=== PATIENT | female | born 1980 | race Caucasian/White ===

== ENCOUNTER → 2020-06-11 16:11 | Outpatient (CLI) | payer OTHER, SELFPAY ==
--- NOTE | ~2020-06-11 | MM_ITS ---
EXAMINATION: MM screening rick BI w aron HISTORY: Screening mammogram TECHNIQUE: Craniocaudal and mediolateral oblique 3-D tomosynthesis images were obtained and synthetic 2-D images were generated. CAD analysis was submitted and interpreted. COMPARISON: No prior mammogram is available for comparison at this institution. BREAST PARENCHYMAL COMPOSITION: There are scattered areas of fibroglandular density. FINDINGS: Bilateral benign-appearing intramammary lymph nodes. There is no evidence of suspicious mas s, calcification, or architectural distortion to suggest malignancy in either breast. There has been no suspicious interval change. IMPRESSION: 1. No mammographic evidence of malignancy. 2. Recommend routine screening mammography in one year. BI-RADS Category 2: Benign finding(s). Reviewed, dictated and finalized at location A.
== END ==
PROVIDERS: Visit Provider Advanced Practice Midwife
DX: Z12.31 Encounter for screening mammogram for malignant neoplasm of breast (principal)
CPT/HCPCS: 77063; 77067

== ENCOUNTER 2020-09-16 11:28 | Outpatient (CLI) | payer OTHER, SELFPAY ==
[2020-09-19 04:32] LABS: CA-125 9 U/mL (<35)
== END 2020-09-16 11:29 | disposition home or self-care (01) ==
PROVIDERS: PCP Registered Nurse; Visit Provider Obstetrics & Gynecology
DX: N83.202 Unspecified ovarian cyst, left side (principal)
CPT/HCPCS: 36415; 86304

== ENCOUNTER → 2020-10-24 15:53 | Outpatient (CLI) | payer OTHER, SELFPAY ==
--- NOTE | ~2020-10-24 | MR_ITS ---
EXAMINATION: MR knee RT wo con DATE: 10/24/2020 17:21 INDICATION: Right knee pain. TECHNIQUE: Magnetic resonance imaging (MRI) of the right knee was performed without intravenous contr ast. Sequences included axial PD-weighted FS FSE, coronal PD-weighted FSE and PD-weighted FS FSE, sag ittal PD-weighted FSE, and sagittal T2-weighted FS FSE. COMPARISON: None. FINDINGS: Medial compartment: There is a complex tear of the body and posterior horn of medial meniscus. There is shallow partial-t hickness cartilage loss of tibial condyle and femoral condyle. Tiny osteophytes are noted. Lateral compartment: Lateral meniscus is normal. There is shallow partial-thickness cartilage loss of tibial condyle, wors t at the central and medial articular surface. There is shallow partial-thickness cartilage loss of f emoral condyle, worst at the posterior articular surface. Tiny osteophytes are noted. Patellofemoral compartment: There is cartilage surface irregularity of patellar medial facet, median ridge, and lateral facet. Th ere is shallow partial-thickness cartilage loss of trochlea. Tiny osteophytes are noted. Ligaments and tendons: There are changes of anterior cruciate ligament reconstruction. The graft is not well defined, but th ere are some visible fibers in the expected orientation on the sagittal images. The posterior cruciat e ligament is normal. There are changes of prior sprains of medial collateral ligament and fibular co llateral ligament characterized by increased signal intensity and thickening proximally. There is mil d patellar tendinopathy. Fluid: There is a small knee joint effusion. Osseous/other: Varicose veins are noted. IMPRESSION: 1. Mild tricompartmental chondrosis. 2. Tear of medial meniscus. 3. Anterior cruciate ligament reconstruction. 4. Small knee joint effusion. 5. Varicose veins. Reviewed, dictated and finalized at location A. 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
== END ==
PROVIDERS: PCP Student in an Organized Health Care Education/Training Program; Visit Provider Student in an Organized Health Care Education/Training Program
DX: M25.561 Pain in right knee (principal); M25.461 Effusion, right knee; S83.241A Other tear of medial meniscus, current injury, right knee, initial encounter; X58.XXXA Exposure to other specified factors, initial encounter; S83.511A Sprain of anterior cruciate ligament of right knee, initial encounter; I83.91 Asymptomatic varicose veins of right lower extremity
CPT/HCPCS: 73721

== ENCOUNTER 2021-08-10 08:57 | Emergency (ER) | payer OTHER, SELFPAY ==
--- NOTE | 2021-08-10 09:08 | ED.URI ---
HPI - URI/Sore Throat General Stated Complaint: Sinus infection Time Seen by Provider: 08/10/21 09:08 Source: patient and RN notes reviewed Mode of arrival: ambulatory Limitations: no limitations History of Present Illness HPI Narrative: Janel is a 40-year-old female patient who ambulated into the [facility] today. Patient states she has greater than 2-week history of sinus congestion, runny nose, cough, sweats, and fever off and on she had states she has severe sinus pressure and ears are hurting. She has a productive cough with green sputum. Patient states she has been taking [place] [employer] severe cold medicine and daytime sinus relief. MD elicited complaint: nasal congestion and sinus pain Related Data Allergies Allergy/AdvReac Type Severity Reaction Status Date / Time amoxicillin Allergy Rash Verified 08/10/21 09:21 Review of Systems Review of Systems: CONSTITUTIONAL: Denies body aches,+ fever, chills, or sweats. EYES: Denies visual changes, redness, or discharge. ENT: + rhinorrhea,+ congestion,denies sore throat, + otalgia. CARDIOVASCULAR: Denies chest pain, palpitations, or edema. RESPIRATORY: + cough denies dyspnea. GASTROINTESTINAL: Denies abdominal pain, nausea, vomiting, or diarrhea. GENITOURINARY: Denies dysuria or hematuria. SKIN: Denies rash, itching, or wounds. MUSCULOSKELETAL: Denies back pain, joint pain, or myalgia. NEUROLOGIC: Denies headache, numbness, tingling, or weakness. PSYCH: Denies depression or anxiety. All systems reviewed & are unremarkable except as noted in HPI and below PMFSH Comments At time of signature, I have reviewed and agree with nursing past medical, surgical, social and family history unless otherwise noted. Please see nursing chart for further information. There is no relevant family history pertinent to the presenting complaint Exam Narrative: GENERAL: Well-appearing, well-nourished, and in no acute distress. HEAD: Normocephalic, atraumatic. EYES: EOMI. No redness or drainage. Conjunctivae normal. ENT: Mucous membranes pink and mildly dry. Nasal membranes are erythematous with clear rhinorrhea. Maxillary sinus swelling is noted. Bilateral tympanic membranes are opaque with moderate amount of fluid near erythema. Posterior pharynx is erythemic with moderate amount of postnasal drainage. Uvula midline. NECK: Normal AROM. Supple. Lateral anterior cervical lymphadenopathy. CHEST: No respiratory distress. Clear to auscultation. H MUSCULOSKELETAL: No bony tenderness. EXTREMITIES: Normal range of motion. No edema. SKIN: Warm, dry, no rash. Capillary refill normal. Normal skin turgor. NEURO: No focal deficits. Alert and oriented x3. Gait steady. PSYCH: Normal affect. No signs of depression or anxiety. Course Vital Signs Vital signs: Reviewed. Pt has been instructed to follow up with her PCP regarding her elevated blood pressure today. MDM - URI/Sore Throat MDM Narrative Medical decision making narrative: Patient has greater than 2-week's of sinus congestion, head pressure, cough and ear pain. Patient will be treated with doxycycline and prednisone. Patient will be given Tessalon Perles for the cough. Patient to follow-up with her primary care physician in 3 to 5 days for continuing symptoms. She may follow-up sooner for worsening of symptoms Differential Diagnosis Differential diagnosis: Likely upper respiratory infection, sinusitis, viral infection and pharyngitis Medical Records Attestation: I reviewed the patient's medical records. Lab Data Attestation: I reviewed the patient's lab results. Critical Care Time Critical Care Time Critical Care Time: No Discharge Plan Discharge Clinical Impression: Sinusitis, acute Qualifiers: Sinusitis location: maxillary Recurrence: non-recurrent Qualified Code(s): J01.00 - Acute maxillary sinusitis, unspecified Patient Disposition: Home, Self-Care Condition: Stable Instructions: Antibiotic Form, Sinusitis (ED) Marcell
[2021-08-10 09:09] VITALS: BP 155/99; PULSE 83; RESP 18; TEMP 36.6; O2SAT 100
== END 2021-08-10 09:31 | disposition home or self-care (01) ==
PROVIDERS: Emergency Provider Nurse Practitioner Family; PCP Registered Nurse
DX: J01.00 Acute maxillary sinusitis, unspecified (principal)
CPT/HCPCS: 99213; G0463

== ENCOUNTER → 2023-08-20 13:24 | Outpatient (CLI) | payer OTHER, SELFPAY ==
--- NOTE | ~2023-08-20 | MM_ITS ---
EXAMINATION: MM screening rick BI w aron HISTORY: Screening mammogram TECHNIQUE: Craniocaudal and mediolateral oblique 3-D tomosynthesis images were obtained and synthetic 2-D images were generated. CAD analysis was submitted and interpreted. COMPARISON: 06/11/2020 BREAST PARENCHYMAL COMPOSITION: There are scattered areas of fibroglandular density. FINDINGS: No suspicious mass, calcification, or architectural distortion are identified in either bren ast to suggest malignancy. There has been no suspicious interval change. IMPRESSION: 1. No mammographic evidence of malignancy. 2. Recommend routine screening mammography in one year. BI-RADS Category 1: Negative Reviewed, dictated and finalized at location A. 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
== END ==
PROVIDERS: PCP Nurse Practitioner; Visit Provider Nurse Practitioner
DX: Z12.31 Encounter for screening mammogram for malignant neoplasm of breast (principal)
CPT/HCPCS: 77063; 77067

== ENCOUNTER 2024-12-06 15:23 | Outpatient (CLI) | payer OTHER, SELFPAY ==
--- NOTE | ~2024-12-06 | MM_ITS ---
EXAMINATION: MM screening rick BI w aron HISTORY: Screening TECHNIQUE: Craniocaudal and mediolateral oblique 3-D tomosynthesis images were obtained and synthetic 2-D images were generated. CAD analysis was submitted and interpreted. COMPARISON: Comparison to multiple prior studies sequentially, with oldest reviewed study dated 05/17. BREAST PARENCHYMAL COMPOSITION: Not dense: There are scattered areas of fibroglandular density. FINDINGS: There is no evidence of suspicious mass, calcification, or architectural distortion to sugg est malignancy in either breast. There has been no suspicious interval change. IMPRESSION: 1. No mammographic evidence of malignancy. 2. Recommend routine screening mammography in one year. BI-RADS Category 1: Negative Reviewed, dictated and finalized at location A.
== END 2024-12-06 15:24 | disposition home or self-care (01) ==
LOC: MICIMG 15:25
PROVIDERS: PCP Registered Nurse
DX: Z12.31 Encounter for screening mammogram for malignant neoplasm of breast (principal)
CPT/HCPCS: 77063; 77067

== ENCOUNTER 2024-12-16 12:03 | Emergency (ER) | payer OTHER, SELFPAY ==
--- NOTE | 2024-12-16 12:04 | ED.URI ---
HPI - URI/Sore Throat General Chief Complaint: Upper Respiratory Infection Stated Complaint: sinus infection Time Seen by Provider: 12/16/24 12:04 Source: patient Mode of arrival: ambulatory Limitations: no limitations History of Present Illness HPI Narrative: Janel is a 44-year-old female patient presenting to the clinic today with complaints of possible sinus infection. She reports she has got sinus pressure, nasal congestion, headache, cough, and sinus congestion x3 weeks. Coughing up and blowing out green and yellow nasal drainage. Denies any shortness of breath or chest pain. Has tried DayQuil/NyQuil/Flonase/cold/sinus medications without relief Related Data Home Medications ?Medication ?Instructions ?Recorded ?Confirmed ?Last Taken ?Type bupropion HCl 200 mg tablet,12 hr 200 mg PO Q12H 12/16/24 12/16/24 Unknown History sustained-release fluticasone propionate 50 2 spray intranasal DAILY 12/16/24 12/16/24 Unknown History mcg/actuation nasal spray,suspension lisinopril 20 mg tablet 20 mg PO DAILY 12/16/24 12/16/24 Unknown History loratadine 10 mg tablet 10 mg PO Q24H 12/16/24 12/16/24 Unknown History tirzepatide (weight loss) 2.5 2.5 mg subcut WEEKLY 12/16/24 12/16/24 Unknown History mg/0.5 mL subcutaneous pen injector (Zepbound) Review of Systems Review of Systems: Pertinent positives per HPI. Patient denies any fever, chills, rash, headache, visual changes, dizziness, cough, shortness of breath, chest pain, palpitations, nausea, vomiting, diarrhea, constipation, abdominal pain, or any urinary issues. PMFSH Comments At the time of my signature, I reviewed and agree with the nursing past medical, surgical, social, and family history. There is no relevant family history pertinent to the patient complaint. Exam Narrative: General: Well-developed, well nourished, in no apparent distress Head: Normocephalic, atraumatic Eyes: Pupils equally round and reactive to light bilaterally, EOM intact, sclera and conjunctive clear, no discharge, lids normal Ears: TMs intact and congested, ear canals clear, no drainage, grossly hearing normal. Nose: Nares patent, green nasal discharge, severe inflammation, maxillary and frontal sinus tenderness. Mouth: Oral pharynx without lesions or masses, good dentition, MMM. Postnasal drip Neck: Supple, trachea midline, no enlargement of anterior or posterior cervical nodes, no thyroid masses or goiter palpable. Cardio: Regular rate and rhythm, s1 and s2 normal, no murmur appreciated. Resp: Clear to auscultation bilaterally, no rhonchi, rales, wheezing or rubs Course Course Emergency Course: Portions of this record may have been created with voice recognition software. Level of Care: [facility] Visit Vital Signs Vital signs: Vital Signs Temperature 36.1 C L 12/16/24 12:11 Pulse Rate 77 12/16/24 12:11 Respiratory Rate 20 12/16/24 12:11 Blood Pressure 125/90 12/16/24 12:11 Pulse Oximetry 100 12/16/24 12:11 Oxygen Delivery Room Air 12/16/24 12:11 Temperature 36.1 C L 12/16/24 12:11 Pulse Rate 77 12/16/24 12:11 Respiratory Rate 20 12/16/24 12:11 Blood Pressure 125/90 12/16/24 12:11 Pulse Oximetry 100 12/16/24 12:11 Oxygen Delivery Room Air 12/16/24 12:11 Vital signs reviewed MDM - URI/Sore Throat MDM Narrative Medical decision making narrative: At the time of visit patient is resting comfortably on the exam table. Patient appears to be nontoxic. Patient reports that she is not allergic to amoxicillin but cannot take cefepime or doxycycline. Plan: I suspect patient has acute bacterial rhinosinusitis. Prescription for Augmentin and prednisone was sent to the pharmacy. Supportive measures were discussed with the patient and they voiced understanding discharge instructions and agrees to treatment plan. Return precautions reviewed Differential Diagnosis Differential diagnosis: Likely upper respiratory infection, otitis media, sinusitis, viral infection, bronchitis, influenza, pharyngitis and other (COVID) Discharge Plan Discharge Clinical Impression: Acute bacterial rhinosinusitis Patient Disposition: Home Condition: Stable Instructions: Antibiotic Form, Rhinosinusitis (ED) Additional Instructions: Take prescription medications only as prescribed-Augmentin and prednisone May take Coricidin HBP for cold/flu symptoms Increase fluids and stay well hydrated Tylenol/motrin for pain/fever Flonase and OTC antihistamines as directed Vicks vapor rub to open sinuses Sinus rinses for congestion Cepacol spray, cough drops, throat lozenges, warm tea with honey/lemon, gargle salt water to soothe throat BRAT diet for diarrhea Clear liquids x 24 hours then advance as tolerated for nausea/vomiting Go to the ED if you develop a worsening in your condition- high fever not controlled by Tylenol or Motrin, dehydration, weakness, lethargy, shortness of breath, or chest pain. Follow up with your PCP in 3-5 days if symptoms persist. Patient Language: [place] Prescriptions: New prednisone 20 mg tablet 40 mg PO DAILY 5 Days Qty: 10 0RF amoxicillin-pot clavulanate 875-125 mg tablet 1 tablet PO Q12H 10 Days Qty: 20 0RF No Action bupropion HCl 200 mg tablet sustained-release 12 hr 200 mg PO Q12H fluticasone propionate 50 mcg/actuation spray,suspension 2 spray INTRANASAL DAILY lisinopril 20 mg tablet 20 mg PO DAILY loratadine 10 mg tablet 10 mg PO Q24H Zepbound 2.5 mg/0.5 mL pen injector 2.5 mg SUBCUT WEEKLY Follow-up/Referrals: Julisa,SRIDEVI Ramirez [Primary Care Provider] - Time of Disposition: 12:19 Quality NIHSS Nursing Documentation ED NIHSS nursing documentation: reviewed/agree
[2024-12-16 12:11] VITALS: BP 125/90; PULSE 77; RESP 20; TEMP 36.1; O2SAT 100
== END 2024-12-16 12:24 | disposition home or self-care (01) ==
PROVIDERS: Emergency Provider Nurse Practitioner Family; PCP Registered Nurse
DX: J01.90 Acute sinusitis, unspecified (principal); I10 Essential (primary) hypertension
CPT/HCPCS: 99213; G0463